=== PATIENT | female | born 1965 | race Caucasian/White ===

== ENCOUNTER 2018-01-01 16:35 | Emergency (ER) | payer MEDICARE ==
[~2018-01-01 16:35] MED LIST: ISOVUE-370 76%-LOCM 1 ML ONE
[2018-01-01 17:01] LABS: #Eosinphils 0.2 thou/uL (0.0-0.7); #Lymphocytes 2.1 thou/uL (1.20-3.40); #Monocytes 0.3 thou/uL (0.11-0.59); #Neutrophils 4.5 thou/uL (1.40-6.50); %Basophils 0.6 % (0.0-1.0); %Eosinophils 2.7 % (0.0-10.0); %Lymphocytes 28.9 % (21.0-51.0); %Monocytes 4.8 % (0.0-10.0); %Neutrophils 62.9 % (42.0-75.0); Hemoglobin 13.3 g/dL (12.0-16.0); Mean Corpuscular HGB CONC 33.9 g/dL (32.0-36.0); Mean Corpuscular Hemoglobin 29.4 pg (27.0-31.0); Mean Corpuscular Volume 86.9 fl (81.0-99.0); Mean Platelet Volume 9.6 fL (7.4-10.4); Platelet Count 236 thou/uL (130-400); RBC Distribution Width 14.1 % (11.5-14.5); Red Blood Cell (RBC) Count 4.52 mill/uL (4.20-5.40); White Blood Cell (WBC) Count 7.1 thou/uL (4.8-10.8)
[2018-01-01 17:09] LABS: Bilirubin Small (Negative); Blood, Urine Small (Negative); Clarity CLOUDY (Clear); Glucose, Urine (Dipstick) Negative (Negative); Leukocyte Moderate (Negative); Nitrite Negative (Negative); Protein, Urine (Dipstick) Negative (Neg-Trace); Specific Gravity, Urine 1.038 (1.002-1.036)
[2018-01-01 17:12] LABS: Bacteria/HPF 1+ HPF (None Seen); Pathc Cast-AUWi Flag 2.18 (0-2.49); WBC/HPF 21-50 HPF (0-3)
[2018-01-01 17:18] LABS: ALT (SGPT) 14 U/L (8-55); AST (SGOT) 15 U/L (5-34); Albumin 4.5 g/dL (3.5-5.0); Alkaline Phosphatase 167 U/L (40-150); Anion Gap 13 mmol/L (10-20); BUN (Urea Nitrogen) 17 mg/dL (9.8-20.1); Bilirubin, Total 0.3 mg/dL (0.2-1.2); Calc. Creatinine Clearance 0 mL/min (70-130); Calcium 9.6 mg/dL (7.8-10.44); Carbon Dioxide 24 mmol/L (22-29); Chloride 105 mmol/L (98-107); Estimated GFR-MDRD 57; Globulin 3.3 g/dL (2.4-3.5); Glucose 133 mg/dL (70-105); Potassium 4.1 mmol/L (3.5-5.1); Protein, Total 7.8 g/dL (6.0-8.3); Sodium 138 mmol/L (136-145)
[2018-01-01 17:23] LABS: Hyaline Casts/LPF 0-3 HYALINE CAST LPF (0-3 Hyaline)
[2018-01-01] MEDS ORDERED: cefTRIAXone\\ROCEPHIN 1 GM VIAL ONE (18:19)
[2018-01-01] MEDS ORDERED: Morphine 4 MG/ML VIAL ONE (18:19)
[2018-01-01] MEDS ORDERED: Ondansetron ODT 4 MG TAB ONE (18:19)
[2018-01-01 18:28] LABS: Pregnancy Test - Urine (BHCG) Negative (Negative); Pregu Control Background? CLEAR/WHITE (CLR/WHITE); Pregu Control Bar Appear? YES (CONTROL BAR); Specific Gravity 1.038 (1.002-1.036)
--- NOTE | 2018-01-01 21:32 | CT ---
ABDOMEN CT WITH CONTRAST PELVIC CT WITH CONTRAST: History: Epigastric pain. Comparison: None. Technique: Abdomen and pelvic CT performed with IV contrast. Enteric contrast was also administered. Coronal reformatted images are submitted for interpretation. FINDINGS: Abdomen CT: Dependent atelectatic changes. Heart size is within normal limits. No significant pericardial effusio n. The descending thoracic aorta and abdominal aorta is normal in caliber. No periaortic fat strandin g. Gallbladder is surgically absent. Liver, spleen, pancreas, and adrenal glands have appropriate enhancement. There is evidence of abdominal wall hernia repair. No evidence of bowel herniation. No mesenteric mas s, lymphadenopathy, free air or free fluid. Gastric mucosa, duodenum and multiple normal caliber small bowel loops are noted. No small bowel obst ruction. There is evidence of bariatric change. There is mild prominence of the small bowel loop at l evel of small bowel anastomosis. Nevertheless, contrast does pass beyond this region. This anastomosi s appears to be in the proximal jejunum. Ileocecal junction is normal. Cecal apex is unremarkable. No rmal caliber appendix. Fecal material in a nondistended, nondilated colon. Diverticulosis in the sigm oid colon and descending colon. Symmetric enhancement of the kidneys. No obstructive uropathy. PELVIC CT: Uterus and adnexal structures are unremarkable. No pelvic mass, lymphadenopathy, free air or free flu id. The urinary bladder is unremarkable. There are no lytic or blastic lesions in the osseous structu res. Remote mild compression fracture at L1 is suspected. Sclerosis involving the L4-5 level. IMPRESSION: 1. No acute abnormality in the abdomen or pelvis. 2. Bariatric surgical changes without evidence of obstruction. Normal caliber appendix. 3. Chronic compression fracture at L1. 4. Diverticulosis in the left hemicolon. No diverticulitis. POS: PPP
== END 2018-01-01 20:52 | disposition home or self-care (01) ==
LOC: ERS 16:35
DX: N39.0 Urinary tract infection, site not specified (principal); G47.419 Narcolepsy without cataplexy; M32.9 Systemic lupus erythematosus, unspecified; I10 Essential (primary) hypertension; F41.9 Anxiety disorder, unspecified; F32.9 Major depressive disorder, single episode, unspecified; F43.10 Post-traumatic stress disorder, unspecified; F17.210 Nicotine dependence, cigarettes, uncomplicated; Z79.899 Other long term (current) drug therapy
CPT/HCPCS: 36415; 74177; 80053; 81003; 81015; 81025; 83605; 83690; 85025; 87086; 96361; 96365; 96375; J0696; J2270; Q0162

== ENCOUNTER 2018-01-05 15:11 | Emergency (ER) | payer MEDICARE ==
[2018-01-05] MEDS ORDERED: Famotidine 20 MG TAB ONE (15:54)
[2018-01-05] MEDS ORDERED: hydrOXYzine 25 MG TAB ONE (15:54)
[2018-01-05] MEDS ORDERED: Dexamethasone 10 MG/ML VIAL ONE (15:54)
== END 2018-01-05 17:16 | disposition home or self-care (01) ==
LOC: ERS 15:11
DX: T63.461A Toxic effect of venom of wasps, accidental (unintentional), initial encounter (principal); I10 Essential (primary) hypertension; F41.9 Anxiety disorder, unspecified; F32.9 Major depressive disorder, single episode, unspecified; L93.0 Discoid lupus erythematosus; F43.10 Post-traumatic stress disorder, unspecified; F17.210 Nicotine dependence, cigarettes, uncomplicated; Z79.01 Long term (current) use of anticoagulants; Z79.899 Other long term (current) drug therapy
CPT/HCPCS: 99283; J1100